=== PATIENT | male | born 1960 | race Caucasian/White ===

== ENCOUNTER 2019-01-28 07:23 | Emergency (ER) | payer MEDICAID, MEDICARE ==
[~2019-01-28] VITALS: Ht 165.1 cm; Wt 92.0 kg
[2019-01-28] MEDS ORDERED: KETOROLAC 30 MG INJ IM STA (07:28)
[2019-01-28 07:34] VITALS: Ht 165.1 cm; Wt 92.0 kg
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
[2019-01-28] MEDS ORDERED: CYCL10TA7 PO (08:32)
[2019-01-28] MEDS ORDERED: IBUP-1542 PO (08:32)
[2019-01-28 09:05] VITALS: BP 107/71; PULSE 55; RESP 14
== END 2019-01-28 09:05 | disposition home or self-care (01) ==
LOC: E/R 07:23
DX: S29.011A Strain of muscle and tendon of front wall of thorax, initial encounter (principal); R07.9 Chest pain, unspecified; V47.5XXA Car driver injured in collision with fixed or stationary object in traffic accident, initial encounter; V89.2XXA Person injured in unspecified motor-vehicle accident, traffic, initial encounter
CPT/HCPCS: 71046; 93005; 96372; 99284; J1885